=== PATIENT | male | born 1990 | race Caucasian/White ===

== ENCOUNTER 2020-01-17 11:06 | Emergency (ER) | payer OTHER, BC ==
[2020-01-17] MEDS ORDERED: FAMOTIDINE INJ/PF 20 MG/2 ML SDV IV ONE (11:13)
[2020-01-17] MEDS ORDERED: DIPHENHYDRAMINE HCL 50 MG/ML VIAL IV ONE (11:13)
[2020-01-17] MEDS ORDERED: METHYLPREDNISOLONE INJ 125 MG/2 ML SDV IV ONE (11:13)
--- NOTE | 2020-01-17 11:15 | ER Document Report ---
ED Medical Screen (RME) - General Chief Complaint: Allergic Reaction Stated Complaint: POSSIBLE ALLERGIC REACTION Time Seen by Provider: 01/17/20 11:10 Mode of Arrival: Ambulatory Information source: Patient Notes: Patient is an otherwise healthy 21-year-old male presenting to the emergency department chief complaint of allergic reaction. Patient reports he was bitten by multiple fire ants this morning. He has no known allergy to this. He states that he is covered in hives now. He denies any difficulty breathing or swallowing but does report some chest pain. Patient has multiple bite barrera to bilateral lower extremities, large hives noted all over patient's torso. Patient speaking in full complete sentences. Patient does report taking 2 tablets of Benadryl when this first occurred about 2 hours ago. I have greeted and performed a rapid initial assessment of this patient. A comprehensive ED assessment and evaluation of the patient, analysis of test results and completion of the medical decision making process will be conducted by additional ED providers. I have specifically instructed the patient or family members with the patient to immediately return to any nursing staff should anything change in the patient's condition or with their chief complaint. - Related Data Allergies/Adverse Reactions: fire ant Allergy (Verified 01/17/20 11:13) Past Medical History - Social History Frequency of alcohol use: None Drug Abuse: None Physical Exam - Vital signs Vitals: Temp 97.6 F 01/17/20 11:10 Course - Vital Signs Vital signs: Temp Pulse Resp BP Pulse Ox 97.6 F 91 16 169/100 H 97 01/17/20 11:11 01/17/20 11:13 01/17/20 11:13 01/17/20 11:13 01/17/20 11:13
[2020-01-17] MEDS ORDERED: NORMAL SALINE 1000 ML 1,000 ML IV ONE (11:28)
--- NOTE | 2020-01-17 12:25 | ER Document Report ---
ED Allergic Reaction - General Chief Complaint: Allergic Reaction Stated Complaint: POSSIBLE ALLERGIC REACTION Time Seen by Provider: 01/17/20 11:10 Mode of Arrival: Ambulatory Information source: Patient - HPI Notes: Patient presents with complaints of some chest tightness and a burning pruritic rash. He states just before arrival he stepped in a fire ant hill and was bitten multiple times by fire ants. He states he is never had an allergic reaction to anything before. He states currently he feels fine. He states earlier he had some chest tightness this is why he came in. This chest tightness is now better. It was intermittent. It was brief. It was a tight sensation. It was mild to moderate. Nothing made it better or worse. Patient states that he had no significant shortness of breath or wheezing. He has had no vomiting or nausea. He states the bites mainly occurred on the legs. - Related Data Allergies/Adverse Reactions: fire ant Allergy (Verified 01/17/20 11:13) Past Medical History - General Information source: Patient - Social History Smoking Status: Never Smoker Frequency of alcohol use: None Drug Abuse: None Family History: Reviewed & Not Pertinent Patient has homicidal ideation: No Review of Systems - Review of Systems Constitutional: denies: Chills, Fever Cardiovascular: Chest pain. denies: Palpitations Respiratory: denies: Cough, Short of breath -: Yes All other systems reviewed and negative Physical Exam - Vital signs Vitals: Temp 97.6 F 01/17/20 11:10 Interpretation: Normal - General General appearance: Appears well, Alert - HEENT Head: Normocephalic, Atraumatic Eyes: Normal Pupils: PERRL - Respiratory Respiratory status: No respiratory distress Chest status: Nontender Breath sounds: Normal Chest palpation: Normal - Cardiovascular Rhythm: Regular Heart sounds: Normal auscultation Murmur: No - Abdominal Inspection: Normal Distension: No distension Bowel sounds: Normal Tenderness: Nontender Organomegaly: No organomegaly - Back Back: Normal, Nontender - Extremities General upper extremity: Normal inspection, Nontender, Normal color, Normal ROM, Normal temperature General lower extremity: Normal inspection, Nontender, Normal color, Normal ROM, Normal temperature, Normal weight bearing. No: Salas's sign - Neurological Neuro grossly intact: Yes Cognition: Normal Orientation: AAOx4 [place] Coma Scale Eye Opening: Spontaneous [place]anna Coma Scale Verbal: Oriented Leanna Coma Scale Motor: Obeys Commands [place] Coma Scale Total: 15 Speech: Normal Motor strength normal: LUE, RUE, LLE, RLE Sensory: Normal - Psychological Associated symptoms: Normal affect, Normal mood - Skin Skin Temperature: Warm Skin Moisture: Dry Skin Color: Erythema, Other - Patient has a diffuse blanching erythematous rash consistent with urticaria. Course - Re-evaluation Re-evalutation: 01/17/20 12:22 Patient presents with an allergic reaction after fire ant bites. No evidence of systemic response other than skin at this time. Patient reexamined at 12:20 PM. He states he feels better. Rash is significantly better. - Vital Signs Vital signs: Temp Pulse Resp BP Pulse Ox 97.6 F 91 25 H 140/98 H 96 01/17/20 11:11 01/17/20 11:13 01/17/20 11:36 01/17/20 11:36 01/17/20 11:36 - EKG Interpretation by [facility] EKG shows normal: Sinus rhythm Rate: Normal - 69 Rhythm: NSR [place]/QRS: No: Right axis deviation, Left axis deviation Discharge - Discharge Clinical Impression: Ant sting, Allergic reaction to insect bite Insect bite Qualifiers: Encounter type: initial encounter Site of insect bite: lower leg Laterality: right Qualified Code(s): S80.861A - Insect bite (nonvenomous), right lower leg, initial encounter; W57.XXXA - Bitten or stung by nonvenomous insect and other nonvenomous arthropods, initial encounter Condition: Stable Disposition: HOME, SELF-CARE Instructions: Acute Allergic Reaction ([facility]) Prescriptions: Dexamethasone [Dexabliss] 4.5 mg PO DAILY 5 Days #5 tab.[id number] Hydroxyzine Pamoate [Vistaril 25 mg Capsule] 25 mg PO Q6 PRN 3 Days #12 capsule PRN Reason: Forms: Return to Work
[2020-01-17 12:51] VITALS: BP 143/89
--- NOTE | 2020-01-18 07:49 | EKG REPORT ---
SEVERITY:- NORMAL ECG - SINUS RHYTHM : Confirmed by: Yesenia Logan MD 18-Jan-2020 07:48:15
== END 2020-01-17 13:00 | disposition home or self-care (01) ==
LOC: ER 11:06
DX: T63.421A Toxic effect of venom of ants, accidental (unintentional), initial encounter (principal); T78.2XXA Anaphylactic shock, unspecified, initial encounter; R07.9 Chest pain, unspecified; R21 Rash and other nonspecific skin eruption
CPT/HCPCS: 93005; 99282; 96361; 96374; 96375; 93010; J1200; J2930; J7030; S0028